=== PATIENT | male | born 1965 | race Caucasian/White ===

== ENCOUNTER 2016-11-21 19:41 | Emergency (ER) | payer OTHER ==
[~2016-11-21] VITALS: Ht 185.4 cm; Wt 127.3 kg
[~2016-11-21 19:41] MED LIST: ATRV10T PO; LISI-567 PO; METF-778 PO; OMEP20CA11 PO; SILD20TA14 PO
[2016-11-21 19:48] VITALS: BP 139/80; PULSE 90; RESP 21; O2SAT 96
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
[2016-11-21] MEDS ORDERED: 0.9% Sodium Chloride 1,000 ML IV ONE (22:01)
[2016-11-21 22:42] LABS: Mean Corpuscular Volume 86 fL (81-100)
[2016-11-21 22:43] LABS: BASOPHILS % (AUTO) 0 % (0-3); EOSINOPHILS % (AUTO) 2 % (0-5); MONOCYTES % (AUTO) 6 % (4-12); Mean Corpuscular Hemoglobin 29.7 pg (27.0-35.0); NEUTROPHILS % (AUTO) 80 % (40-74); Platelet Count 256 bil/L (150-400)
[2016-11-21 23:01] LABS: Magnesium 1.5 mg/dL (1.6-2.6)
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
== END 2016-11-22 00:30 | disposition home or self-care (01) ==
LOC: SED 19:41
DX: S20.219A Contusion of unspecified front wall of thorax, initial encounter (principal); M79.601 Pain in right arm; M25.562 Pain in left knee; V89.2XXA Person injured in unspecified motor-vehicle accident, traffic, initial encounter; Y93.89 Activity, other specified; Y92.410 Unspecified street and highway as the place of occurrence of the external cause; Y99.8 Other external cause status; I10 Essential (primary) hypertension; E78.5 Hyperlipidemia, unspecified; E11.9 Type 2 diabetes mellitus without complications; Z98.890 Other specified postprocedural states
CPT/HCPCS: 36415; 71260; 80053; 83735; 85025; 96360; 99285; J7030; Q9967